=== PATIENT | female | born 1990 | race Caucasian/White ===

== ENCOUNTER 2018-04-06 10:36 | Emergency (ER) | payer MEDICAID ==
[~2018-04-06] VITALS: Ht 157.5 cm; Wt 100.0 kg
[~2018-04-06 10:36] MED LIST: BACT800T5 PO; PROM25TA5 PO; ZOFR4TAB3 SL
[2018-04-06 10:39] VITALS: BP 132/74; PULSE 80; RESP 16; TEMP 98.3; O2SAT 99
--- NOTE | 2018-04-06 11:32 | PD ---
HPI Chief Complaint: Skin Problem Time Seen by Provider: 11:10 Travel History International Travel<30 days: No Contact w/Intl Traveler<30days: No Traveled to known affect area: No History of Present Illness HPI Patient is a 28-year-old female presenting to the emergency department for evaluation of left first toenail thickening. Patient states it has been ongoing for the last 6 years. She states when he gets wet it hurts. Does not hurt to touch or to ambulate. Patient denies any redness, swelling, drainage. Symptom onset was gradual, symptoms are mild in nature. PFSH Past Medical History Medical History: Denies Significant Hx Diminished Hearing: No Immunizations Current: Yes ?: Not LMP: FEBRUARY 2018 : 1 Para: 1 Past Surgical History Surgical History: No Previous Surgery Social History Alcohol Use: No Tobacco Use: No Substance Use: No Allergies-Medications (Allergen,Severity, Reaction): Coded Allergies: No Known Allergies (Unverified , 10/21/16) Reported Meds & Prescriptions Reported Meds & Active Scripts Active Zofran Odt (Ondansetron Odt) 4 Mg Tab 4 Mg SL Q6HR PRN Phenergan (Promethazine HCl) 25 Mg Tab 25 Mg PO Q6H PRN Bactrim DS (Sulfamethoxazole-Trimethoprim) 800-160 Mg Tab 1 Tab PO BID Review of Systems Except as stated in HPI: all other systems reviewed are Neg Skin: Positive Other Physical Exam Narrative GENERAL: Overweight, well-developed, alert female. Presenting in no acute distress. SKIN: Warm and dry. Left first toenail without erythema, edema. White/yellow discoloration to nail and slight thickening. Brisk less than 3 second capillary refill. HEAD: Normocephalic. EYES: No scleral icterus. No injection or drainage. NECK: Supple, trachea midline. No JVD or lymphadenopathy. CARDIOVASCULAR: Regular rate and rhythm without murmurs, gallops, or rubs. RESPIRATORY: Breath sounds equal bilaterally. No accessory muscle use. GASTROINTESTINAL: Abdomen soft, non-tender, nondistended. MUSCULOSKELETAL: No cyanosis, or edema. BACK: Nontender without obvious deformity. No CVA tenderness. Data Data Last Documented VS Vital Signs Date Time Temp Pulse Resp B/P (MAP) Pulse Ox O2 Delivery O2 Flow Rate FiO2 04/06/18 10:39 98.3 80 16 132/74 (93) 99 [facility] Medical Decision Making Medical Screen Exam Complete: Yes Emergency Medical Condition: No Interpretation(s) Vital Signs Date Time Temp Pulse Resp B/P (MAP) Pulse Ox O2 Delivery O2 Flow Rate FiO2 04/06/18 10:39 98.3 80 16 132/74 (93) 99 Differential Diagnosis Onychomycosis versus ingrown toenail versus normal examination versus other Narrative Course Patient is well-appearing 28-year-old female presenting with 6 years of left first toenail changes. There are no acute issues identified. Patient was encouraged to follow-up with a visual merchandising associate or with the primary doctor. A medical screening exam was performed: At the time of evaluation the presenting medical condition was determined not to be of an emergent nature. The patient was given the option of receiving additional care, but declined. Patient was given options for additional community resources from which to obtain care. The Patient Has Been advised to seek medical attention for their presenting complaint. The patient has been advised to return to the ER at any time if an emergent condition develops. Diagnosis Primary Impression: Medical clearance for psychiatric admission Additional Impression: Encounter for medical screening examination Joana Rivas Apr 06, 2018 11:32
== END 2018-04-06 13:15 | disposition left against medical advice (07) ==
LOC: NEPD 10:36
DX: L60.2 Onychogryphosis (principal); Z79.899 Other long term (current) drug therapy
CPT/HCPCS: 99281